=== PATIENT | male | born 1970 | race Caucasian/White ===

== ENCOUNTER → 2016-06-28 | Outpatient (CLI) | payer BC ==
[~2016-06-28] MED LIST: OXYC-57
--- NOTE | 2016-06-28 17:12 | DIAGNOSTIC IMAGING REPORT ---
MRI OF THE CERVICAL SPINE WITHOUT IV CONTRAST CLINICAL HISTORY: Cervical radiculopathy. COMPARISON STUDY: No priors. TECHNIQUE: MRI of the cervical spine is performed utilizing various T1 and T2-weighted sequences in the axial and sagittal planes. IV contrast was not administered for this examination. FINDINGS: Cervical spine: Vertebral body height and alignment are maintained throughout the cervical spine. There is straightening of the cervical lordosis with mild reversal centered at C5. The atlantodental articulation appears maintained. The spinous processes are intact. No destructive bony lesion is seen. Intervertebral discs: There is minimal degenerative disc desiccation at C5-C6. The discs are normal in height. Spinal cord: The cervical spinal cord is normal in morphology and signal intensity. C2-C3: Unremarkable. C3-C4: Mild left-sided facet arthropathy is of no consequence. The central canal and neural foramina are widely patent. C4-C5: Unremarkable. C5-C6: There is a tiny posterior disc osteophyte complex. The central canal is patent. Uncovertebral and facet arthropathy contribute to mild right greater than left neural foraminal stenosis. C6-C7: Unremarkable. C7-T1: Unremarkable. T1-T2: There is a small posterior disc bulge. The central canal appears patent. Soft tissues: The prevertebral and paraspinous soft tissues are within normal limits. Brain parenchyma: Partially visualized brain parenchyma is normal in appearance. IMPRESSION: 1. There is no disc herniation or central canal stenosis seen involving the cervical spine. 2. Minimal spondylotic change as above. See discussion for level by level analysis. 3. No destructive bony process is seen. Dictated: 06/28/2016 4:44 PM Transcribed: 06/28/2016 5:11 PM [email or web address] Electronically signed by: Ian Garza M.D. 06/29/2016 4:05 PM Dictated Date/Time: 06/28/2016 4:44 PM
== END | disposition home or self-care (01) ==
LOC: C.MRIBC 15:46
PROVIDERS: ATTEND Pain Medicine Interventional Pain Medicine
DX: M54.12 Radiculopathy, cervical region (principal)

== ENCOUNTER → 2017-04-29 | Outpatient (CLI) | payer BC, OTHER ==
[~2017-04-29] MED LIST changes: +MULT-506 PO; +NAPR1TAB9 PO
[2017-04-29 14:08] LABS: BASO % 0.5 %; BASO ABS # 0.05 K/uL (0-0.2); EOS % 3.7 %; EOS ABS # 0.35 K/uL (0-0.5); HEMATOCRIT 45.3 % (42-52); HEMOGLOBIN 16.1 g/dL (14.0-18.0); IG# 0.05 K/uL (0.00-0.02); LYMPH % 23.6 %; LYMPH ABS # 2.24 K/uL (1.2-3.4); MEAN CELL VOLUME 89.3 fL (80-100); MEAN CORPUSCULAR HEMOGLOBIN 31.8 pg (25-34); MEAN CORPUSCULAR HGB CONC 35.5 g/dl (32-36); MONO % 13.9 %; MONO ABS # 1.32 K/uL (0.11-0.59); NEUT % 57.8 %; PLATELET COUNT 234 K/uL (130-400); RED CELL DISTRIBUTION WIDTH CV 13.3 % (11.5-14.5); RED CELL DISTRIBUTION WIDTH SD 43.5 fL (36.4-46.3); WHITE BLOOD COUNT 9.51 K/uL (4.8-10.8)
[2017-04-29 14:16] LABS: BLOOD UREA NITROGEN 15 mg/dl (7-18); CALCIUM 8.8 mg/dl (8.5-10.1); CARBON DIOXIDE 25 mmol/L (21-32); CREATININE 0.95 mg/dl (0.60-1.40); GLUCOSE 109 mg/dl (70-99); POTASSIUM 3.9 mmol/L (3.5-5.1); SODIUM 138 mmol/L (136-145)
== END | disposition home or self-care (01) ==
LOC: C.LABBC 11:00
PROVIDERS: ATTEND Orthopaedic Surgery
DX: Z01.812 Encounter for preprocedural laboratory examination (principal); M25.511 Pain in right shoulder

== ENCOUNTER → 2017-05-19 | Day surgery (SDC) | payer OTHER ==
[2017-05-05 11:36] VITALS: Ht 182.9 cm; Wt 131.8 kg
[~2017-05-19] VITALS: Ht 182.9 cm; Wt 131.8 kg
[~2017-05-19] MED LIST changes: +ATROPINE SULFATE 0.1 MG/ML 5ML SYR IV PRN; +BUPIVACAINE 0.25% 2.5MG/ML PF 10 ML VIAL ONE; +BUPIVACAINE 0.25% 30 ML VIAL ONE; +CEFAZOLIN 3000MG IV PUSH 22.5 ML IV SCH; +CHECK SCOPOLAMINE PATCH PLACEMENT SCH; +DEXAMETHASONE SOD INJ 4 MG/ML VIAL ONE; +EpHEDrine SULFATE INJ 50 MG/ML AMP IV PRN; +EpINEphrine INJ 1MG/ML AMP 1 MG/ML AMP ONE; +FENTANYL CITRATE INJ 50 MCG/1 ML 2 ML VIAL IV PRN; +FENTANYL CITRATE INJ 50 MCG/1 ML 2 ML VIAL ONE; +FLUMAZENIL 0.1 MG/1 ML 10 ML VIAL IV PRN; +HYDROmorphone INJ 2 MG/ML SYR/VIAL IV PRN; +KETO10TA PO; +LABETALOL HCL IV 5 MG/ML 20ML IV PRN; +LACTATED RINGER'S 1000ML 1,000 ML IV SCH; +LIDOCAINE HCL 2% 2 ML VIAL (20MG/ML) ONE; +MEPERIDINE HCL 25 MG/ML CARP IV PRN; +MIDAZOLAM HCL 1 MG/ML 2ML VIAL ONE; +NALOXONE HCL 0.4 MG/1 ML VIAL/CARP IV PRN; +NURSING VERBAL MED ORDER ONE; +ONDANSETRON INJ 2 MG/ML 2 ML VIAL IV PRN; +ONDANSETRON INJ 2 MG/ML 2 ML VIAL ONE; -OXYC-57; +OXYC-57 PO; +OXYCODONE/ACETAMINOPHEN 5-325 TAB PO PRN; +PHENYLEPHRINE 100MCG/ML 5ML SYR IV PRN; +PROPOFOL IV EMULSION 10 MG/ML 20 ML VIAL IV ONE; +ROPIVACAINE 0.5% 5 MG/ML 30 ML VIAL ONE; +SCOPOLAMINE 1.5 MG TDSY TD ONE; +SODIUM CHLORIDE 0.9% 1000ML 1,000 ML IV SCH
--- NOTE | 2017-05-19 06:45 | History & Physical Bridge Note ---
H&P Re-Evaluation Bridge Note: I have examined the patient, reviewed the History & Physical and in the interval since the performance of the History & Physical I have noted the following changes of clinical significance: No changes noted
--- NOTE | 2017-05-19 08:56 | [facility] Post Operative Brief Note ---
Immediate Operative Summary Operative Date May 19, 2017. Pre-Operative Diagnosis Right Shoulder Full Thickness Rotator Cuff Tear Post-Operative Diagnosis Same Procedure(s) Performed Right Shoulder Arthroscopy, Rotator Cuff Repair, Biceps Tenodesis, Acromioplasty Surgeon Dr. Martin Jean French Weaver Surgeon(s) Sharad Vázquez PA-C Estimated Blood Loss 5 ml Findings Consistent with Post-Op Diagnosis Specimens None Anesthesia Type General Regional Complication(s) none Disposition Disposition: Recovery Room / PACU
--- NOTE | 2017-05-19 09:07 | Discharge Instructions-SurgCtr ---
Discharge Instructions Date of Service May 19, 2017. Visit Reason for Visit: Right Shoulder Full Thickness Rotator Cuff Tear Discharge Discharge Diagnosis / Problem: RIGHT SHOULDER PAIN, ROTATOR CUFF TEAR Discharge Goals Goal(s): Decrease discomfort, Improve function, Therapeutic intervention Activity Recommendations Activity Limitations: per Instructions/Follow-up section LIMITED USE OF RIGHT ARM Anesthesia . Post Anesthesia Instructions: If you have had General Anesthesia or IV Sedation: * Do not drive today. * Resume driving when surgeon permits. * Do not make important decisions or sign legal documents today. * Call surgeon for: 1. Temperature elevations greater than 101 degrees F. 2. Uncontrollable pain. 3. Excessive bleeding. 4. Persistent nausea and vomiting. 5. Medication intolerance (nausea, vomiting or rash). * For nausea and vomiting use only clear liquids such as: tea, soda, bouillon until nausea subsides, then gradually increase diet as tolerated. * If you have any concerns or questions, call your surgeon's office. If physician is unavailable and it is an emergency, call 911 or go to the nearest emergency room. . Instructions / Follow-Up Instructions / Follow-Up MEDICATIONS: * Resume previous medications unless instructed otherwise by your surgeon. * Always take pain medication on a full stomach or with food to avoid upset stomach. * Do not drink alcohol or drive while taking narcotics. * Ibuprofen or Tylenol may be taken if narcotic not needed. NO IBUPROFEN WHILE TAKING TORADOL SPECIAL CARE INSTRUCTIONS: __ None _X_ Keep extremity iced x 48 hours; apply ice 20-30 minutes 8-10 times/day. May remove at night. __ Sling __24 hrs/day __ Remove at night _X_ Shoulder Immobilizer _X_ 24 hrs/day __ Remove at night _X_ Dressing __ Maintain until seen in office, may shower with plastic over site _X_ Remove dressings in 5 DAYS then may shower _X_ Cover incisions with band-aids after showering __ Do not remove steri-strips Call physician if chills or temperature rises above 102 degrees or pain unrelieved by prescribed pain medications at . . FOLLOW UP SCHEDULED Diet Recommendations Home Diet: resume previous diet Procedures Procedures Performed: Right Shoulder Arthroscopy, Rotator Cuff Repair, Biceps Tenodesis, Acromioplasty Pending Studies Studies pending at discharge: no Medical Emergencies . Who to Call and When: Medical Emergencies: If at any time you feel your situation is an emergency, please call 911 immediately. . Non-Emergent Contact Non-Emergency issues call your: Surgeon . . "Provider Documentation" section prepared by Zackary Vázquez. .
--- NOTE | 2017-05-19 09:37 | Anesthesia Progress Nt - [facility] ---
Anesthesia Post Op Note Date & Time May 19, 2017 at 09:37 Vital Signs Pain Intensity: 0 Vital Signs Past 12 Hours Date Time Temp Pulse Resp B/P (MAP) Pulse Ox O2 Delivery O2 Flow Rate FiO2 05/19/17 09:05 36 48 22 116/80 95 Mask 10 05/19/17 07:17 89 23 97 05/19/17 07:17 89 05/19/17 07:16 78 05/19/17 07:16 80 21 96 05/19/17 07:15 136/92 05/19/17 07:11 77 05/19/17 07:11 81 21 97 05/19/17 07:10 80 05/19/17 07:10 74 0 126/87 94 05/19/17 07:08 134/81 05/19/17 07:05 75 0 05/19/17 07:00 75 0 05/19/17 06:55 79 0 05/19/17 06:50 0 05/19/17 06:28 36.8 81 22 143/86 (105) 97 Room Air Notes Mental Status: alert / awake / arousable, participated in evaluation Pt Amnestic to Procedure: Yes Nausea / Vomiting: adequately controlled Pain: adequately controlled Airway Patency, RR, SpO2: stable & adequate BP & HR: stable & adequate Hydration State: stable & adequate Anesthetic Complications: no major complications apparent
--- NOTE | 2017-05-19 09:46 | Discharge Instructions-SurgCtr ---
Discharge Instructions Date of Service May 19, 2017. Visit Reason for Visit: Right Shoulder Full Thickness Rotator Cuff Tear Discharge Discharge Diagnosis / Problem: right shoulder rotator cuff tear Discharge Goals Goal(s): Decrease discomfort, Improve function, Therapeutic intervention Activity Recommendations Activity Limitations: per Instructions/Follow-up section limited use of right arm Anesthesia . Post Anesthesia Instructions: If you have had General Anesthesia or IV Sedation: * Do not drive today. * Resume driving when surgeon permits. * Do not make important decisions or sign legal documents today. * Call surgeon for: 1. Temperature elevations greater than 101 degrees F. 2. Uncontrollable pain. 3. Excessive bleeding. 4. Persistent nausea and vomiting. 5. Medication intolerance (nausea, vomiting or rash). * For nausea and vomiting use only clear liquids such as: tea, soda, bouillon until nausea subsides, then gradually increase diet as tolerated. * If you have any concerns or questions, call your surgeon's office. If physician is unavailable and it is an emergency, call 911 or go to the nearest emergency room. . Instructions / Follow-Up Instructions / Follow-Up MEDICATIONS: * Resume previous medications unless instructed otherwise by your surgeon. * Always take pain medication on a full stomach or with food to avoid upset stomach. * Do not drink alcohol or drive while taking narcotics. * Ibuprofen or Tylenol may be taken if narcotic not needed. No ibuprofen while taking toradol SPECIAL CARE INSTRUCTIONS: __ None _x_ Keep extremity iced x 48 hours; apply ice 20-30 minutes 8-10 times/day. May remove at night. __ Sling __24 hrs/day __ Remove at night _x_ Shoulder Immobilizer _x_ 24 hrs/day __ Remove at night x__ Dressing __ Maintain until seen in office, may shower with plastic over site _x_ Remove dressings in 48 hours and then may shower _x_ Cover incisions with band-aids after showering __ Do not remove steri-strips Call physician if chills or temperature rises above 102 degrees or pain unrelieved by prescribed pain medications at . . follow up as scheduled Diet Recommendations Home Diet: resume previous diet Procedures Procedures Performed: Right Shoulder Arthroscopy, Rotator Cuff Repair, Biceps Tenodesis, Acromioplasty Pending Studies Studies pending at discharge: no Medical Emergencies . Who to Call and When: Medical Emergencies: If at any time you feel your situation is an emergency, please call 911 immediately. . Non-Emergent Contact Non-Emergency issues call your: Surgeon . . "Provider Documentation" section prepared by Zackary Vázquez. .
[2017-05-19 09:50] VITALS: TEMP 36.4
[2017-05-19 10:14] VITALS: BP 139/79; PULSE 60; O2SAT 95
--- NOTE | 2017-05-19 16:33 | OPERATIVE REPORT ---
DATE OF OPERATION: 05/19/2017 PREOPERATIVE DIAGNOSIS: Medium size rotator cuff tear of the right shoulder. POSTOPERATIVE DIAGNOSIS: Medium size rotator cuff tear and biceps tendinopathy of the right shoulder. PROCEDURE: Right shoulder diagnostic arthroscopy with limited debridement, acromioplasty anterior superior rotator cuff repair involving the supraspinatus and subscapularis and arthroscopic biceps tenodesis. SURGEON: Dr. Noel Jean. DIRECTOR OF RETAIL MARKETING: Daryl Vázquez PA-C, whose assistance was necessary for retraction, help with arthroscopic instrumentation and closure. ANESTHESIA: Checked General with a right interscalene nerve block. COMPLICATIONS: None. CONDITION: Stable to PACU. 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 Back on 03/16/2017 a tool belt slipped off his shoulder and was caught in his flexed elbow. It caused a traction injury to his right arm. He had immediate shoulder pain. MRI and clinical examination showed anterior superior cuff tear and biceps tendinopathy. After failing conservative treatment, he elected to undergo arthroscopy. On 05/19/2017 he arrived at [facility] for the above procedure. He was seen in the preoperative holding and the operative extremity was identified and signed. He was given a preoperative antibiotic and a right interscalene nerve block. He was taken back to the operating room, laid on the table in supine position and put under general anesthesia. He was then put into the beachchair position. The right shoulder was prepped and draped in sterile fashion. Time-out was done. The patient and operative extremity was properly identified. A scope was introduced in the posterior portal. Diagnostic arthroscopy showed no cartilage damage to the humeral head or the glenoid. There was a little fraying of the anterior and superior labrum. The biceps tendon was frayed. There was a tear of the upper border of the subscapularis and a complete tear of the supraspinatus which was unexpected. An anterior portal was made. A shaver was used to do a limited debridement of the intraarticular structures and the biceps tendon was arthroscopically tenotomized for later tenodesis. The scope was then put into the subacromial space. A lateral portal was made. A shaver was used to do a complete subacromial and subdeltoid bursectomy. An ablator was used to tease the coracoacromial ligament off the undersurface of the acromion and a 5-0 frank was used to clean an acromioplasty of a Bigliani type 3 acromion. A shaver was used to remove any excess debris and attention was turned to the rotator cuff. Decision was made to fix the subscapularis first. An additional anterolateral portal was made and Laura cannulas were placed into the lateral portals. The lesser tuberosity was prepared with a ring curette. The subscapularis was then fixed with an Arthrex modified SpeedBridge configuration using 4.75 mm BioComposite SwiveLock suture anchors and FiberTapes. This gave a nice knotless repair. Attention was then turned to the supraspinatus. It was a crescent shaped medium sized rotator cuff tear. The greater tuberosity was prepared with a ring curette and microfracture. The rotator cuff was then fixed with an Arthrex SpeedBridge configuration using 4.75 mm BioComposite SwiveLock suture anchors and FiberTapes. This gave a nice knotless SpeedBridge repair. The long head of the biceps tendon was tagged with a FiberLink and incorporated into the anterior medial anchor to complete an arthroscopic biceps tenodesis. Multiple pictures were taken. The scope was placed back into the glenohumeral joint and the articular margin of the rotator cuff had been restored. Pictures were taken. Arthroscopic instruments were removed from the shoulder. Portal sites were closed with 3-0 nylon. He was then placed in a soft dressing and an abduction arm sling. He was then extubated, transferred to a litter and taken to the post anesthesia care unit in stable condition. He tolerated the procedure well. I attest to the content of the Intraoperative Record and any orders documented therein. Any exception s are noted below.
== END | disposition home or self-care (01) ==
LOC: X.SURG 06:20
PROVIDERS: ATTEND Orthopaedic Surgery
DX: S46.011A Strain of muscle(s) and tendon(s) of the rotator cuff of right shoulder, initial encounter (principal); X58.XXXA Exposure to other specified factors, initial encounter; Y92.89 Other specified places as the place of occurrence of the external cause; Y99.0 Civilian activity done for income or pay